=== PATIENT | female | born 1995 | race Caucasian/White ===

== ENCOUNTER 2017-02-13 14:37 | Outpatient (CLI) | payer OTHER ==
[~2017-02-13] VITALS: Ht 167.6 cm; Wt 64.1 kg
[2017-02-13 14:56] VITALS: Ht 167.6 cm; Wt 64.1 kg
[2017-02-13 14:57] VITALS: BP 112/76; PULSE 125; RESP 16
--- NOTE | 2017-02-13 17:12 | RADRPT ---
PROCEDURE: US OB. CLINICAL INDICATION: Vaginal bleeding. TECHNIQUE: Multiple sonographic images of the uterus were obtained. The images were revi ewed on a PACS workstation. COMPARISON: No prior studies are available for comparison. FINDINGS: There is a single live intrauterine gestation. heart rate is 152 beats per minute. Measurements were made in order to determine age. The results are as follows: BPD = 8.29 cm. HC = 30.34 cm. AC = 30.96 cm. FL = 7.02 cm. Estimated weight is 2546 +/- 382 grams. LMP growth percentile is 28 %. Menstrual age by ultrasound dates is 34 weeks 3 days. The estimated date of delivery is 03/24/2017. Position is cephalic and placenta is posterior grade 1. There is no evidence for an abruption or amanda centa previa. IMPRESSION: 1. Single live intrauterine gestation of 34 weeks 3 days menstrual age by ultrasound dates. 2. The estimated date of delivery is 03/24/2017. RPTAT: QQ .Jonathon Neville MD, Date Time Electronically viewed and signed by .Jonathon Neville MD, on 02/13/2017 17:12 .R/
--- NOTE | 2017-02-13 17:13 | RADRPT ---
PROCEDURE: US biophysical profile. CLINICAL INDICATION: Vaginal bleeding. TECHNIQUE: Multiple sonographic images of the uterus were obtained. The images were revi ewed on a PACS workstation. COMPARISON: No prior studies are available for comparison. FINDINGS: There is a single live intrauterine gestation. heart rate is 152 beats per minute. The position is cephalic. The placenta is posterior grade 1 with no abruption or previa. The MEGAN is 16.6 cm. (Normal = 5-20 cm.) Breathing Movement: 2 Gross Body Movement: 2 Tone: 2 Qualitative Amniotic Fluid Volume: 2 TOTAL: 8 IMPRESSION: 1. The biophysical score is 8/8. RPTAT: QQ .Jonathon Neville MD, Date Time Electronically viewed and signed by .Jonathon Neville MD, on 02/13/2017 17:12 .R/
--- NOTE | 2017-02-13 17:48 | PN ---
Triage Information Date/Time Reason for visit: Uterine contractions Weeks of Gestation 35+ /Para 1/0 Diabetes: none Hypertention: none Objective Vital Signs Date Time Temp Pulse Resp B/P Pulse Ox O2 Delivery O2 Flow Rate FiO2 02/13/17 14:57 98.1 125 16 112/76 Heart Rate: 140's Contractions: None Disposition: Discharge Assessment/Plan Nocervical change No vaginal bleeding Some irritability NSt reassuring BPP 11/28 --->discharged with precautions LUPE JUNG M.D. Feb 13, 2017 17:48
--- NOTE | 2017-02-13 17:53 | TRIAGE ---
OB Triage Datetime Report Generated by CPN: 02/13/2017 17:53 Datetime: 02/13/2017 17:26 Labor Evaluation Frequency: 0 Monitor Mode: External Duration (sec)2399: 0 Quality: Mild Pattern: Normal: <= 5 Contractions in 10 Minutes Resting Tone [place]: Relaxed Heart Rate FHR Baseline Rate: 150 Monitor Mode: External US FHR Baseline Changes: No Baseline Change Variability: Moderate 6-25 bpm Accelerations: 15X15 Decelerations: None Category: Category I Datetime: 02/13/2017 17:02 Labor Evaluation Frequency: IRRITABILTY Monitor Mode: External Duration (sec)2399: 30-40 Quality: Mild Pattern: Normal: <= 5 Contractions in 10 Minutes Resting Tone [place]: Relaxed Heart Rate FHR Baseline Rate: 150 Monitor Mode: External US FHR Baseline Changes: No Baseline Change Variability: Moderate 6-25 bpm Accelerations: 15X15 Decelerations: None Category: Category I Membrane Status: Intact Datetime: 02/13/2017 16:55 Maternal Assessment Level of Consciousness: Fully Conscious DTR's/Clonus: DTRs 2+; No Clonus Headache: Denies Blurred Vision: No Respiratory Effort: Unlabored Breath Sounds, Left: Clear and Equal Breath Sounds, Right: Clear and Equal Nausea/Vomiting: Denies RUQ Epigastric Pain: Denies Facial Edema: None Pain Assessment Pain Scale: 0 Pain Presence: None/Denies Pain Type: N/A Pain Goal: 0 Pain Assessment Comments: PT DENIES OF ANY PAIN Vaginal Exam Dilatation (cms): 0.0 Effacement (%): 50 Station: -3 Vaginal Bleeding: None Cervix, Consistency: Firm Cervix, Position: Midposition Presentation 'A': Unable to Assess Lie 'A': Unable to Assess Datetime: 02/13/2017 15:21 EGA: 35.5 Datetime: 02/13/2017 15:19 Labor Evaluation Frequency: 2-3 Monitor Mode: External Duration (sec)2399: 20-30 Quality: Mild Pattern: Normal: <= 5 Contractions in 10 Minutes Resting Tone [place]: Relaxed Contraction Comments: uc with irriatability Heart Rate FHR Baseline Rate: 155 Monitor Mode: External US Variability: Moderate 6-25 bpm Accelerations: 15X15 Decelerations: None Category: Category I Pain Assessment Pain Scale: 6 Pain Presence: Intermittent Pain Type: Contraction Pain Location: Abdomen Pain Goal: 3 Datetime: 02/13/2017 14:54 Assessment Type: Triage Maternal Assessment Level of Consciousness: Fully Conscious DTR's/Clonus: DTRs 2+; No Clonus Headache: Denies Blurred Vision: No Respiratory Effort: Unlabored; Regular Rhythm; Equal Expansion Breath Sounds, Left: Clear and Equal Breath Sounds, Right: Clear and Equal Nausea/Vomiting: Denies RUQ Epigastric Pain: Denies Lower Extremities Edema: None Degree: None Upper Extremities Edema: None Degree: None Facial Edema: None Fall Risk Assessment History of Falling: (0) No Secondary Diagnosis: (0) No Ambulatory Aid: (0) Bedrest/Nurse Assist IV Therapy: (0) No Gait: (0) Normal/Bedrest/Immobile Mental Status: (0) Oriented to Own Ability Fall Score: 0 Fall Risk Score Definition: No Risk: No action required Datetime: 02/13/2017 14:42 Time of Arrival: 02/13/2017 14:31 EGA: 35.5 Arrived By: Ambulance Arrived From: Home Chief Complaint: PT. came to hospital via ambulance c/o lower abdominal pain and spotting 1 time, pain started one hour ago. pain level 6/10, Movement: Present Rupture of Membranes: Denies Recent Sexual Intercouse: Denies Abdominal Trauma: Not Applicable Patient Complaints: Other Time Provider Notified: 02/13/2017 15:01 Provider Notified:
== END 2017-02-13 18:00 | disposition home or self-care (01) ==
LOC: L-D 14:37 → OBT 14:37
PROVIDERS: ATTEND Obstetrics & Gynecology
DX: O62.9 Abnormality of forces of labor, unspecified (principal); Z3A.35 35 weeks gestation of pregnancy
CPT/HCPCS: 76815; 76818; Z7500; G0463

== ENCOUNTER 2017-03-09 07:27 | Inpatient (IN) | payer OTHER ==
[~2017-03-09] VITALS: Ht 167.6 cm; Wt 65.9 kg
[2017-03-09 07:49] VITALS: Ht 167.6 cm; Wt 65.9 kg
[2017-03-09 07:50] VITALS: BP 124/86; PULSE 108; RESP 18
[2017-03-09] MEDS ORDERED: PREN-93 PO (07:52)
--- NOTE | 2017-03-09 08:30 | TRIAGE ---
OB Triage Datetime Report Generated by CPN: 03/09/2017 08:29 Datetime: 03/09/2017 08:13 Labor Evaluation Frequency: 1-2 Monitor Mode: External Duration (sec)2399: 60-70 Quality: Mild Pattern: Normal: <= 5 Contractions in 10 Minutes Resting Tone [place]: Relaxed Heart Rate FHR Baseline Rate: 145 Monitor Mode: External US FHR Baseline Changes: No Baseline Change Variability: Moderate 6-25 bpm Accelerations: 15X15 Decelerations: None Category: Category I Vaginal Exam Dilatation (cms): 0.5 Effacement (%): 50 Station: -3 Exam By: MATA AMOR Membrane Status: Intact Vaginal Bleeding: Normal Show Cervix, Consistency: Firm Cervix, Position: Posterior Presentation 'A': Unable to Assess Lie 'A': Unable to Assess Datetime: 03/09/2017 08:06 Assessment Type: Triage Maternal Assessment Level of Consciousness: Fully Conscious DTR's/Clonus: DTRs 2+; No Clonus Headache: Denies Blurred Vision: No Respiratory Effort: Unlabored Breath Sounds, Left: Clear and Equal Breath Sounds, Right: Clear and Equal Nausea/Vomiting: Denies RUQ Epigastric Pain: Denies Lower Extremities Edema: None Degree: None Upper Extremities Edema: None Degree: None Facial Edema: None Fall Risk Assessment History of Falling: (0) No Secondary Diagnosis: (0) No Ambulatory Aid: (0) Bedrest/Nurse Assist IV Therapy: (0) No Gait: (0) Normal/Bedrest/Immobile Mental Status: (0) Oriented to Own Ability Fall Score: 0 Fall Risk Score Definition: No Risk: No action required Datetime: 03/09/2017 07:52 Stage of : OB Triage Maternal Assessment Level of Consciousness: Fully Conscious DTR's/Clonus: DTRs 2+; No Clonus Headache: Denies Blurred Vision: No Respiratory Effort: Unlabored Breath Sounds, Left: Clear and Equal Breath Sounds, Right: Clear and Equal Nausea/Vomiting: Denies RUQ Epigastric Pain: Denies Facial Edema: None Labor Evaluation Frequency: 2-3 Monitor Mode: External Duration (sec)2399: 60-70 Quality: Mild Pattern: Normal: <= 5 Contractions in 10 Minutes Resting Tone [place]: Relaxed Heart Rate FHR Baseline Rate: 145 Monitor Mode: External US FHR Baseline Changes: No Baseline Change Variability: Minimal - Undetectable to <=5 bpm Accelerations: 10X10 Decelerations: Early Category: Category II Pain Assessment Pain Scale: 1 Pain Presence: Intermittent Pain Type: Contraction Pain Location: Abdomen Pain Goal: 0 Pain Relief Measures: Comfort Measures Membrane Status: Intact Datetime: 03/09/2017 07:28 Time of Arrival: 03/09/2017 07:20 EGA: 39.1 Arrived By: Ambulatory Arrived From: Home Chief Complaint: R/O LABOR Movement: Present Contractions: Irregular Contractions: 2-3 Rupture of Membranes: Denies Vaginal Bleeding: Small Vaginal Discharge: Denies Recent Sexual Intercouse: Denies Abdominal Trauma: Not Applicable Patient Complaints: Contractions Provider Notified: ERICH Datetime: 02/13/2017 15:21 EGA: 35.5 Datetime: 02/13/2017 14:54 Fall Score: 0 Fall Risk Score Definition: No Risk: No action required Datetime: 02/13/2017 14:42 EGA: 35.5 Contractions: Denies/Absent Vaginal Bleeding: None
[2017-03-09] MEDS ORDERED: OXYTOCIN 30 UNITS/LR 500 ML IV SCH ×3 (09:00)
[2017-03-09] MEDS ORDERED: BUTORPHANOL 2 MG INJ IV PRN (09:00)
[2017-03-09] MEDS ORDERED: LIDOCAINE 1% (MPF) 30 ML INJ INJ PRN (09:00)
--- NOTE | 2017-03-09 09:16 | RADRPT ---
PROCEDURE: US OB. CLINICAL INDICATION: Size and dates , contractions TECHNIQUE: Multiple sonographic images of the pelvis and gravid uterus were obtained. The images were reviewed on a PACS workstation. COMPARISON: 02/13/2017 FINDINGS: There is a single viable intrauterine gestation. Cardiac activity is present with 135 beats per min ze. There is a vertex presentation. The placenta is posterior. There is no evidence for an abruption or placenta previa. There is a normal amount of amniotic fluid with an MEGAN = 10.5 cm. Measurements were made in order to determine age. The results are as follows: BPD =8.8 cm HC =31.6 cm AC =32.1 cm FL =7.0 cm Estimated gestational age of approximately 35 weeks and 5 days based on ultrasound measurements. Clinical age: 39 weeks and 1 day. The estimated date of delivery is 04/08/17, based on ultrasound measurements. The EFW = 2783 g, 6.1%, based on LMP age. RPTAT: AA IMPRESSION: Single viable intrauterine gestation of approximately 35 weeks and 5 days based on ultrasound measu rements. .Randy Castellon MD, Date Time Electronically viewed and signed by .Randy Castellon MD, on 03/09/2017 09:15 .S/
[2017-03-09 11:15] LABS: BASOPHILS % 0.2 % (0.0-2.0); EOSINOPHILS # 0.1 10^3/ul (0.0-0.5); EOSINOPHILS % 0.7 % (0.0-7.0); HEMATOCRIT 37.8 % (37.0-47.0); HEMOGLOBIN 12.8 g/dl (12.0-16.0); LYMPHOCYTES # 1.6 10^3/ul (0.8-2.9); LYMPHOCYTES % 16.6 % (18.0-55.0); MEAN CORPUSCULAR HEMOGLOBIN 31.3 pg (29.0-33.0); MEAN CORPUSCULAR HGB CONC 33.9 g/dl (32.0-37.0); MEAN CORPUSCULAR VOLUME 92.4 fl (72.0-104.0); MEAN PLATELET VOLUME 10.6 fl (7.4-10.4); MONOCYTE # 0.6 10^3/ul (0.3-0.9); NEUTROPHIL # 7.2 10^3/ul (1.6-7.5); NEUTROPHILS % 76.1 % (30.0-74.0); PLATELET COUNT 309 10^3/UL (140-415); RED BLOOD COUNT 4.09 10^6/ul (4.20-5.40); RED CELL DISTRIBUTION WIDTH 12.6 % (11.5-14.5); WHITE BLOOD COUNT 9.4 10^3/ul (4.8-10.8)
[2017-03-09] MEDS: LACTATED RINGER'S 1,000 ML IV SCH ×2 (11:28→16:51)
[2017-03-09 11:39] LABS: BARBITURATES Negative (NEGATIVE); BENZODIAZEPINES Negative (NEGATIVE); CANNABINOIDS Negative (NEGATIVE); COCAINE Negative (NEGATIVE); OPIATES Negative (NEGATIVE)
[2017-03-09 11:45] LABS: INR 0.85; PROTIME 11.6 Sec (12.2-14.2); PT RATIO 0.9
[2017-03-09 11:46] LABS: PARTIAL THROMBOPLASTIN TIME 25.6 Sec (25.0-35.0)
--- NOTE | 2017-03-09 14:34 | RADRPT ---
PROCEDURE: US biophysical profile. CLINICAL INDICATION: Contractions. TECHNIQUE: Multiple sonographic images of the uterus were obtained. The images were revi ewed on a PACS workstation. COMPARISON: 02/13/2017 FINDINGS: There is a single live intrauterine gestation. heart rate is 137 beats per minute. The position is cephalic. The placenta is posterior grade II with no abruption or previa. The MEGAN is 10.5 cm. (Normal = 5-20 cm.) Breathing Movement: 2 Gross Body Movement: 2 Tone: 2 Qualitative Amniotic Fluid Volume: 2 TOTAL: 8 IMPRESSION: 1. The biophysical score is 8/8. RPTAT: QQ .Jonathon Neville MD, MD Date Time Electronically viewed and signed by .Jonathon Neville MD, on 03/09/2017 14:34 .R/
[2017-03-10] MEDS ORDERED: IBUPROFEN 600 MG TAB PO PRN
[2017-03-10] MEDS: LACTATED RINGER'S 1,000 ML IV SCH ×4 (00:19→10:44)
[2017-03-10] MEDS ORDERED: FENTAnyl 2MCG/ML-ROPIV 0.2% 100 ML ONE (02:13)
[2017-03-10] MEDS ORDERED: NALOXONE (0.4 MG/ML) INJ IV PRN (03:00)
[2017-03-10] MEDS: FENTAnyl 2MCG/ML-ROPIV 0.2% 100 ML BAG EPI SCH ×2 (03:48→08:24)
[2017-03-10] MEDS ORDERED: AMPICILLIN 2 GM/NS (PMX) 100 ML IVPB ONE (04:30)
[2017-03-10] MEDS ORDERED: AMPICILLIN 1 GM/NS (PMX) 50 ML IVPB SCH (08:30)
[2017-03-10] MEDS ORDERED: ACETAMINOPHEN 325 MG TAB PO PRN (10:30)
--- NOTE | 2017-03-10 11:18 | HP ---
Date/Time of Note Date/Time of Note DATE: 03/10/17 TIME: 11:17 OB - History Hx of Present Free Text/Dictation 39+ : 1 Para: 0 Care: Good Care Ultrasounds: Normal mid trimester US Obstetrical Complications: None Medical Complications: None Past Family/Social History * Past Medical, Surgical, Family and Obstetric Histories reviewed from chart. OB Admission Exam Vital Signs Vital Signs Vital Signs Date Time Temp Pulse Resp B/P Pulse Ox O2 Delivery O2 Flow Rate FiO2 03/09/17 07:50 98.1 108 18 124/86 100 Room Air Physical Exam HEENT: WNL Abdomen: WNL Extremities: Normal Reflexes: Normal Cervical Dilatation: 2cm Effacement: 75% Station: -1 Membranes: Intact Heart Rate: 140's Accelerations: Accelerations Present Decelerations: No Decelerations Varibility: Moderate Contractions on Admission: 6-10 Minutes Apart Last 72 hours Lab Results CBC & BMP 03/09/17 11:05 OB Assessment/Plan Reason for admission: observation Plan: Expectant Management Induction Method: per Pitocin Protocol LUPE JUNG M.D. Mar 10, 2017 11:18
--- NOTE | 2017-03-10 11:19 | LDN ---
Date/Time of Note Date/Time of Note DATE: 03/10/17 TIME: 11:18 Delivery Summary 39+ Weeks of Gestation 39+ Placenta Delivered: Spontaneously Meconium: Light Episiotomy: No Anesthesia type: Epidural Estimated blood loss: 200 Sponge & Needle done & correct: Yes All needle counts correct: Yes Any foreign bodies felt in the: No Problems: Mother & Baby Disposition Disposition Mom & Baby to Maternity; Good: Yes Baby to NICU: No LUPE JUNG M.D. Mar 10, 2017 11:19
[2017-03-10] MEDS ORDERED: LACTATED RINGER'S 1,000 ML IV* SCH (11:42)
[2017-03-10] MEDS ORDERED: OXYTOCIN 30 UNITS/LR 500 ML IV PRN ×2 (12:00)
[2017-03-10] MEDS ORDERED: CARBOPROST 250 MCG INJ IM PRN ×2 (12:00)
[2017-03-10] MEDS ORDERED: ZOLPIDEM 5 MG TAB PO PRN (12:00)
[2017-03-10] MEDS ORDERED: WITCH HAZEL/GLYCERIN PAD PR PRN (12:00)
[2017-03-10] MEDS ORDERED: LANOLIN 7 GM TUBE TOP PRN (12:00)
[2017-03-10] MEDS ORDERED: MISOPROSTOL 200 MCG TAB PR PRN ×2 (12:00)
[2017-03-10] MEDS ORDERED: OXYCODONE/ASPIRIN (4.88/325) TAB PO PRN ×2 (12:00)
[2017-03-10] MEDS ORDERED: METHYLERGONOVINE 0.2 MG INJ IM PRN ×2 (12:00)
[2017-03-10 13:35] VITALS: BP 119/80; PULSE 99; RESP 18
[2017-03-10] MEDS: IBUPROFEN 600 MG TAB PO SCH ×2 (14:50→18:02)
[2017-03-10 16:03] VITALS: BP 127/80; PULSE 108; RESP 20
[2017-03-10] MEDS ORDERED: INFLUENZA VIRUS VACCINE 0.5 ML SYG IM* ONE (18:00)
[2017-03-10 20:00] VITALS: BP 110/68; PULSE 88; RESP 20
[2017-03-10] MEDS: SENNA/DOCUSATE NA (8.6MG/50MG) TAB PO SCH (21:33)
[2017-03-11] MEDS: IBUPROFEN 600 MG TAB PO SCH ×4 (00:55→17:22)
[2017-03-11 04:00] VITALS: BP 95/53; PULSE 85; RESP 16
[2017-03-11 07:56] VITALS: BP 99/58; PULSE 66; RESP 18
[2017-03-11] MEDS: SENNA/DOCUSATE NA (8.6MG/50MG) TAB PO SCH ×2 (08:16→21:00)
[2017-03-11 08:59] LABS: BASOPHILS % 0.3 % (0.0-2.0); EOSINOPHILS # 0.2 10^3/ul (0.0-0.5); EOSINOPHILS % 1.2 % (0.0-7.0); HEMOGLOBIN 9.5 g/dl (12.0-16.0); LYMPHOCYTES # 1.8 10^3/ul (0.8-2.9); LYMPHOCYTES % 11.9 % (18.0-55.0); MEAN CORPUSCULAR HEMOGLOBIN 31.8 pg (29.0-33.0); MEAN CORPUSCULAR HGB CONC 33.9 g/dl (32.0-37.0); MEAN CORPUSCULAR VOLUME 93.6 fl (72.0-104.0); MEAN PLATELET VOLUME 10.4 fl (7.4-10.4); MONOCYTE # 0.9 10^3/ul (0.3-0.9); MONOCYTES % 5.6 % (0.0-13.0); NEUTROPHIL # 12.1 10^3/ul (1.6-7.5); NEUTROPHILS % 80.4 % (30.0-74.0); PLATELET COUNT 206 10^3/UL (140-415); RED BLOOD COUNT 2.99 10^6/ul (4.20-5.40); WHITE BLOOD COUNT 15.1 10^3/ul (4.8-10.8)
[2017-03-11] MEDS ORDERED: INFLUENZA VIRUS VACCINE 0.5 ML (DISPENSING) IM* ONE (09:00)
[2017-03-11 16:00] VITALS: BP 98/58; PULSE 73; RESP 18
--- NOTE | 2017-03-11 18:34 | QN ---
Documentation Comment ppd1 pt doing well vss exam w nl a/p ppd1 continue care JOSAFAT BRYSON MD Mar 11, 2017 18:34
[2017-03-11 20:00] VITALS: BP 112/74; PULSE 80; RESP 20
[2017-03-12] MEDS: IBUPROFEN 600 MG TAB PO SCH ×4 (00:18→18:27)
[2017-03-12 04:00] VITALS: BP 107/61; PULSE 64; RESP 20
[2017-03-12 07:59] VITALS: BP 115/81; PULSE 76; RESP 18
[2017-03-12] MEDS: SENNA/DOCUSATE NA (8.6MG/50MG) TAB PO SCH (08:39)
[2017-03-12] MEDS ORDERED: DIPHTH/TET/ACEL PERTUSS (ADULT) 0.5 ML VIAL IM* ONE (09:00)
--- NOTE | 2017-03-12 16:01 | QN ---
Documentation Comment PPD#2 is stable afebrile tolerates diet No VB +BM +voids VS stable Gen NAD Abd soft NT ND Genitalia No blood at perinium --->discharge Home LUPE JUNG M.D. Mar 12, 2017 16:01
--- NOTE | 2017-03-12 16:02 | DS ---
Date/Time of Note Date/Time of Note DATE: 03/12/17 TIME: 16:01 Discharge Summary Admission/Discharge Info Admit Date/Time Mar 09, 2017 at 08:25 Discharge Date/Time Feb Discharge Diagnosis Patient Condition: Good Procedures vaginal delivery Hospital Course unevetful Home Meds Reported Medications Vit No.124/Iron/FA ( Vitamin Tablet) 1 Each Tablet, 1 EACH PO, TAB 03/09/17 Primary Care Provider Not On Staff Doctor LUPE JUNG M.D. Mar 12, 2017 16:02
[2017-03-12 16:04] VITALS: BP 118/73; PULSE 68; RESP 18
== END 2017-03-12 19:00 | disposition home or self-care (01) | DRG 775 ==
LOC: OBT 07:27 → L-D 07:27 → OBT 11:04 → PP1 03-10 13:57
PROVIDERS: ADMIT Obstetrics & Gynecology; ATTEND Obstetrics & Gynecology
PROC: 4A1HXCZ Monitoring of Products of Conception, Cardiac Rate, External Approach (ICD-10-PCS; 2017-03-09)
PROC: 10E0XZZ Delivery of Products of Conception, External Approach (ICD-10-PCS; principal; 2017-03-10)
PROC: 3E0234Z Introduction of Serum, Toxoid and Vaccine into Muscle, Percutaneous Approach (ICD-10-PCS; 2017-03-11)
PROC: 3E0234Z Introduction of Serum, Toxoid and Vaccine into Muscle, Percutaneous Approach (ICD-10-PCS; 2017-03-12)
DX: O80 Encounter for full-term uncomplicated delivery (principal); Z3A.39 39 weeks gestation of pregnancy; Z37.0 Single live birth; Z23 Encounter for immunization
CPT/HCPCS: 62319; 76815; 76818; 80307; 85025; 85610; 85730; 90686; 90715; 99464; G0463; J0290; J0595; J2590; J3010; J7120

== ENCOUNTER 2018-07-15 19:18 | Emergency (ER) | payer OTHER ==
[~2018-07-15] VITALS: Ht 167.6 cm; Wt 54.0 kg
[2018-07-15 19:34] VITALS: Ht 167.6 cm; Wt 54.0 kg
[2018-07-15] MEDS ORDERED: SOD CHLORIDE 0.9% 1,000 ML IV STA (23:18)
[2018-07-15] MEDS ORDERED: ACETAMINOPHEN 500 MG TAB PO STA (23:18)
--- NOTE | 2018-07-15 23:24 | ERD ---
ER Documentation Chief Complaint Chief Complaint L SIDE BREAST PAIN X'S 1 DAY HPI This is a 23-year-old female with a nonsignificant past medical history presents ED with multiple complaints. Patient is complaining of cough for the past 3 days as well as left anterior chest pain near her axilla that is been present for the past day as well as a near syncopal episodes that occurred earlier today.. Patient states that over the past 3 days she has been coughing. Patient states that at school today she was falling asleep at her desk and when she woke up she felt her heart rate increasing which made her extremely nervous and short of breath. Patient states that she got up from her seat and was feeling extremely anxious and fainted. Patient did not strike her head. Denies fever, chills, sputum production, nausea, vomiting, diarrhea, cuts patient, abdominal pain, wheezing and all other symptoms. Patient denies PE risk factors including recent surgery/immobilization, smoking, prior hx of DVT, coagulopathy, hx of cancer, exogenous estrogen use, one sided lower extremity swelling, and lower extremity pain. Patient denies cardiac risk factors including: hypertension, diabetes mellitus, hypercholesterolemia, physical inactivity, smoking, hx of CAD, and prior stress/cath. ROS All systems reviewed and are negative except as per history of present illness. Medications Home Meds No Active Prescriptions or Reported Meds Allergies Allergies: Coded Allergies: No Known Allergy (Unverified , 03/09/17) FmHx Family History: No diabetes Physical Exam Vitals Vital Signs Date Temp Pulse Resp B/P (MAP) Pulse Ox O2 O2 Flow FiO2 Time Delivery Rate 07/15/18 97.6 115 18 138/88 97 19:34 (105) Physical Exam Physical Exam Vitals signs: Reviewed by me. General: Well developed, well nourished, in no acute distress. Patient is awake and alert. Head: Normocephalic, atraumatic. Eyes: Normal conjunctiva, Pupils PERRLA, EOM intact grossly ENT: Pharynx is clear, Moist mucous membranes, external ears, nose and mouth normal Neck: Supple, no masses, lymphadenopathy or JVD breast exam: No purulent drainage expressed from left breast, breast is nontender to palpation, there is mild tenderness palpation along chest near the left axilla, no increased redness, swelling, Respiratory: Clear to auscultation bilaterally with no wheezing, rhonchi, rales, no distress Cardiovascular: RRR, no murmurs, rubs, or gallops Abdominal: Soft, non-tender, non-distended, no peritoneal signs : Deferred MSK: No edema, no unilateral swelling, 5/5 strength Back: No midline tenderness. No flank tenderness Neurologic: Alert and oriented, moving all extremities, normal speech, no focal weakness, no cerebellar signs. Normal mentation Skin: warm and dry, No rash Psych: Normal mood Result Diagram: 07/15/18 2341 07/15/18 2341 Results 24 hrs Laboratory Tests Test 07/15/18 23:41 07/15/18 23:52 07/15/18 23:54 White Blood Count 7.1 10^3/ul Red Blood Count 4.19 10^6/ul Hemoglobin 12.7 g/dl Hematocrit 38.6 % Mean Corpuscular Volume 92.1 fl Mean Corpuscular Hemoglobin 30.3 pg Mean Corpuscular 32.9 g/dl Hemoglobin Concent Red Cell Distribution Width 12.8 % Platelet Count 359 10^3/UL Mean Platelet Volume 9.5 fl Immature Granulocytes % 0.300 % Neutrophils % 60.3 % Lymphocytes % 30.7 % Monocytes % 7.8 % Eosinophils % 0.3 % Basophils % 0.6 % Nucleated Red Blood Cells % 0.0 /100WBC Immature Granulocytes # 0.020 10^3/ul Neutrophils # 4.3 10^3/ul Lymphocytes # 2.2 10^3/ul Monocytes # 0.6 10^3/ul Eosinophils # 0.0 10^3/ul Basophils # 0.0 10^3/ul Nucleated Red Blood Cells # 0.0 10^3/ul Urine Color YELLOW Urine Clarity CLEAR Urine pH 8.0 Urine Specific [place] 1.011 Urine Ketones 1+ mg/dL Urine Nitrite NEGATIVE mg/dL Urine Bilirubin NEGATIVE mg/dL Urine Urobilinogen NEGATIVE mg/dL Urine Leukocyte Esterase NEGATIVE Javon/ul Urine Microscopic RBC 1 /HPF Urine Microscopic WBC 2 /HPF Urine Squamous Epithelial Cells FEW /HPF Urine Mucus FEW /HPF Urine Hemoglobin 1+ mg/dL Urine Glucose NEGATIVE mg/dL Urine Total Protein NEGATIVE mg/dl Sodium Level 144 mmol/L Potassium Level 3.1 mmol/L Chloride Level 103 mmol/L Carbon Dioxide Level 25 mmol/L Anion Gap 16 Blood Urea Nitrogen 6 mg/dl Creatinine 0.55 mg/dl Est Glomerular Filtrat > 60 mL/min Rate mL/min Glucose Level 105 mg/dl Calcium Level 9.8 mg/dl Troponin I < 0.012 ng/ml Bedside Urine pH (LAB) 7.5 Bedside Urine Protein (LAB) Negative Bedside Urine Glucose (UA) Negative Bedside Urine Ketones (LAB) 1+ Bedside Urine Blood Trace-lysed Bedside Urine Nitrite (LAB) Negative Bedside Urine Leukocyte Esterase Negative (L POC Beta HCG, Qualitative NEGATIVE Current Medications Medications Dose Sig/Maik Start Time Status Last (Trade) Ordered Route PRN Stop Time Admin Dose Reason Admin Sodium 1,000 ml @ Q1H STAT 07/15/18 DC 07/16/18 Chloride 1,000 mls/hr IV 23:18 00:00 07/16/18 00:17 Lorazepam 0.5 mg ONCE ONCE 07/15/18 DC 07/16/18 (Ativan) IV 23:30 00:02 07/15/18 23:31 1,000 mg ONCE STAT 07/15/18 DC 07/15/18 Acetaminophen PO 23:18 23:59 (Tylenol 07/15/18 23:19 Tab) Potassium 40 meq ONCE STAT 07/16/18 DC 07/16/18 Chloride PO 00:28 00:35 (Klor-Con 20) 07/16/18 00:29 Procedures/MDM EKG, MONITORS, & DIAGNOSTIC IMAGING: [place] [id number] Radiology Main Line: [phone] DIAGNOSTIC IMAGING REPORT Patient: DALI ELDER : 1995 Age: 23 Sex: F MR #: [id number] DOS: 07/15/18 2318 Ordering MD: TAMICA JOY PA-C Location: [facility] Room/Bed: PROCEDURE: XR Chest. CLINICAL INDICATION: Syncope. TECHNIQUE: AP view of the chest was obtained. COMPARISON: None available FINDINGS: The cardiomediastinal silhouette is within normal limits. The lungs are clear. No signs of pleural fluid or pneumothorax are seen. The osseous structures and soft tissues are unremarkable. IMPRESSION: 1. No evidence for acute cardiopulmonary disease. RPTAT: HGAS .Levi Slater MD, Date Time Electronically viewed and signed by .Levi Slater MD, MD on 07/16/2018 00:23 .S/ CC: TAMICA JOY PA-C [id number] EKG read by warner: Rate/Rhythm: Regular rate and rhythm at a rate of 98 Intervals: Normal Impression: No evidence of ischemia or arrhythmia No ST elevation, no peak T waves, no widened QRS, no WA interval prolongation, no QT interval prolongation LAB INTERPRETATION: CBC shows no evidence of hemorrhage or infection Chemistry remarkable for a mildly decreased potassium at 3.1, mildly elevated a nion gap 16 Liver function test shows no evidence of acute biliary or hepatic dysfunction Cardiac biomarkers show no evidence of acute myocardial injury or coronary ischemia Urinalysis remarkable for 1+ ketones, no leukocyte esterase and no nitrite ER COURSE: The patient was given iv normal saline and ativan The medication was well tolerated and the patient reports improvement in symptoms. The patient was stable throughout ED course. I kept the patient and/or family informed of laboratory and diagnostic imaging results throughout the emergency room course. The patient was promptly evaluated and a treatment plan was devised based on H&P and other data. This plan was discussed with the patient who agreed and had no further questions or concerns prior to discharge. MEDICAL DECISION MAKING: This is a 23-year-old female presents ED with complaints of left anterior lateral chest pain near her axilla that is been present for the past day as well as cough for the past 3 days and a vasovagal episode that occurred earlier today. The patient presents with chest pain and I considered pulmonary embolism, acute coronary syndrome, STEMI, and STEMI, pericarditis, aortic dissection, pneumothorax, tension pneumothorax, pneumonia, pleural effusion, among other diagnoses. Per the perc criteria pulmonary embolism can be ruled out. Patient is low risk for PE by well's criteria with the score of 0. Patient also does not have any risk factors for pulmonary embolism. Chest x-ray is unremarkable. EKG is also unremarkable. Evaluation for acute coronary syndrome was performed. The HEART score (www.mdcalc.com <http://www.mdcalc.com>) was utilized for risk stratification and found to be 0. Based on this evaluation the patients risk of major adverse cardiac events is <1%. Patient is also extremely anxious in the emergency department and I believe that her symptoms could also be due to anxiety, costochondritis. History and physical examination other data not consistent with emergent processes including lung not limited to acute coronary syndrome, pulmonary embolism, pneumonia, pleural effusion, pneumothorax, tension pneumothorax, aortic dissection, esophageal rupture, among others. Patient vitals are stable and patient can be managed with close outpatient follow. patient advised to follow up with primary care in the next 48 hours. return to ed with any worsening symptoms DISPOSITION PLAN: We discussed follow up with the patient's primary care doctor within 24 to 48 hours. Patient counseled regarding my diagnostic impression and care plan. Prior to discharge all questions answered. Pt agrees with treatment plan and understands strict return precautions. Precautionary instructions provided including instructions to return to the ER if not improving or for any worsening or changing symptoms or concerns. SPECIALIST FOLLOW UP RECOMMENDED: None Patient has been advised to follow up with primary care in 1-2 days. Disclaimer: Inadvertent spelling and grammatical errors are likely due to EHR/dictation software use and do not reflect on the overall quality of patient care. Also, please note that the electronic time recorded on this note does not necessarily reflect the actual time of the patient encounter. Departure Diagnosis: Primary Impression: Chest pain Chest pain type: unspecified Qualified Codes: R07.9 - Chest pain, unspecified Additional Impressions: Vasovagal near syncope Cough Hypokalemia Condition: Stable Patient Instructions: Anxiety Reaction, Anxiety and Traumatic Brain Injury, Chest Pain, Uncertain Cause, Chest Wall Pain, Costochondritis, Hypokalemia, Near Syncope, Vasovagal Referrals: COMM[facility] Additional Instructions: Patient advised to return to the ED immediately for new or worsening symptoms. Patient advised to follow up with primary care provider in the next 24-48 hours. Patient verbalized understanding and agrees with treatment plan and course of action. If patient has no primary care they may follow up with one of the community clinics listed on the following page or one of the options listed below [facility] + [facility] [address] [place] [id number] or [facility] [address] [place] [address] or [facility] [address] [place] [address] TAMICA JOY PA-C Jul 15, 2018 23:24
[2018-07-15] MEDS ORDERED: LORAZEPAM 2 MG INJ IV ONE (23:30)
[2018-07-16] MEDS ORDERED: POTASSIUM CHLORIDE (SR) 20 MEQ TAB PO STA (00:28)
[2018-07-16] MEDS ORDERED: IBUP-1542 PO (01:00)
[2018-07-16 01:22] VITALS: BP 121/79; PULSE 85; RESP 18
== END 2018-07-16 01:24 | disposition home or self-care (01) ==
LOC: FTE 19:18
DX: R07.9 Chest pain, unspecified (principal); R55 Syncope and collapse; E87.6 Hypokalemia
CPT/HCPCS: 36415; 71045; 80048; 81001; 81003; 81025; 84484; 85025; 93005; 96361; 96374; J2060; J7030; Z7502; Z7610

== ENCOUNTER 2018-08-03 00:07 | Emergency (ER) | payer OTHER ==
[~2018-08-03] VITALS: Ht 165.1 cm; Wt 54.7 kg
[~2018-08-03 00:07] MED LIST: IBUP-1542 PO
[2018-08-03 00:28] VITALS: BP 142/96; PULSE 97; RESP 19; Ht 165.1 cm; Wt 54.7 kg
== END 2018-08-03 05:15 | disposition left against medical advice (07) ==
LOC: FTE 00:07
DX: Z53.21 Procedure and treatment not carried out due to patient leaving prior to being seen by health care provider (principal)

== ENCOUNTER 2018-10-17 19:26 | Emergency (ER) | payer OTHER ==
[~2018-10-17] VITALS: Ht 167.6 cm; Wt 51.6 kg
[2018-10-17 19:49] VITALS: Ht 167.6 cm; Wt 51.6 kg
--- NOTE | 2018-10-17 22:07 | ERD ---
ER Documentation Chief Complaint Chief Complaint L upper non-radiating CP X 1 hr, Hx CHF HPI chf ROS All systems reviewed and are negative except as per history of present illness. Medications Home Meds Active Scripts Ibuprofen* (Motrin*) 600 Mg Tab, 600 MG PO Q6, #30 TAB Prov:BENITA TAMICA MALONE 07/16/18 Allergies Allergies: Coded Allergies: No Known Allergy (Unverified , 03/09/17) PMhx/Soc Hx Alcohol Use: No Hx Substance Use: No Hx Tobacco Use: No Physical Exam Vitals Vital Signs Date Temp Pulse Resp B/P (MAP) Pulse Ox O2 O2 Flow FiO2 Time Delivery Rate 10/17/18 98.7 79 18 121/67 99 19:49 (85) Physical Exam Const: No acute distress Head: Atraumatic Eyes: Normal Conjunctiva ENT: Normal External Ears, Nose and Mouth. Neck: Full range of motion. No meningismus. Resp: Clear to auscultation bilaterally Cardio: Regular rate and rhythm, no murmurs Abd: Soft, non tender, non distended. Normal bowel sounds Skin: No petechiae or rashes Back: No midline or flank tenderness Ext: No cyanosis, or edema Neur: Awake and alert Psych: Normal Mood and Affect Result Diagram: 10/17/18221810/17/182218 Results 24 hrs Laboratory Tests Test 10/17/18 22:19 10/17/18 22:31 White Blood Count 6.8 10^3/ul Red Blood Count 3.93 10^6/ul Hemoglobin 12.0 g/dl Hematocrit 36.6 % Mean Corpuscular Volume 93.1 fl Mean Corpuscular Hemoglobin 30.5 pg Mean Corpuscular Hemoglobin Concent 32.8 g/dl Red Cell Distribution Width 12.8 % Platelet Count 339 10^3/UL Mean Platelet Volume 9.5 fl Immature Granulocytes % 0.100 % Neutrophils % 63.1 % Lymphocytes % 28.3 % Monocytes % 6.0 % Eosinophils % 1.9 % Basophils % 0.6 % Nucleated Red Blood Cells % 0.0 /100WBC Immature Granulocytes # 0.010 10^3/ul Neutrophils # 4.3 10^3/ul Lymphocytes # 1.9 10^3/ul Monocytes # 0.4 10^3/ul Eosinophils # 0.1 10^3/ul Basophils # 0.0 10^3/ul Nucleated Red Blood Cells # 0.0 10^3/ul Prothrombin Time 12.8 Sec Prothrombin Time Ratio 1.0 INR International Normalized Ratio 0.95 Activated Partial Thromboplast Time 30.3 Sec Urine Color STRAW Urine Clarity CLEAR Urine pH 6.0 Urine Specific [place] 1.010 Urine Ketones NEGATIVE mg/dL Urine Nitrite NEGATIVE mg/dL Urine Bilirubin NEGATIVE mg/dL Urine Urobilinogen NEGATIVE mg/dL Urine Leukocyte Esterase NEGATIVE Javon/ul Urine Hemoglobin NEGATIVE mg/dL Urine Glucose NEGATIVE mg/dL Urine Total Protein NEGATIVE mg/dl Sodium Level 143 mmol/L Potassium Level 3.9 mmol/L Chloride Level 106 mmol/L Carbon Dioxide Level 27 mmol/L Anion Gap 10 Blood Urea Nitrogen 10 mg/dl Creatinine 0.59 mg/dl Est Glomerular Filtrat Rate mL/min > 60 mL/min Glucose Level 103 mg/dl Calcium Level 9.6 mg/dl Total Bilirubin 0.4 mg/dl Direct Bilirubin 0.00 mg/dl Indirect Bilirubin 0.4 mg/dl Aspartate Amino Transf (AST/SGOT) 21 IU/L Alanine Aminotransferase (ALT/SGPT) 22 IU/L Alkaline Phosphatase 68 IU/L Troponin I < 0.012 ng/ml B-Type Natriuretic Peptide 37 PG/ML Total Protein 7.9 g/dl Albumin 4.6 g/dl Globulin 3.30 g/dl Albumin/Globulin Ratio 1.39 Thyroid Stimulating Hormone (TSH) 2.090 MIU/L Free Thyroxine 1.00 ng/dl Free Triiodothyronine (T3) pg/mL 3.95 pg/ml POC Beta HCG, Qualitative NEGATIVE Current Medications Medications Dose Sig/Maik Start Time Status Last (Trade) Ordered Route PRN Stop Time Admin Dose Reason Admin Ketorolac 15 mg ONCE STAT 10/18/18 DC 10/18/18 Tromethamine IV 01:01 01:08 (Toradol) 10/18/18 01:02 JOHN FERREIRA Oct 17, 2018 22:06 BILLIE VALLEJO MD Oct 18, 2018 01:12
[2018-10-18] MEDS ORDERED: KETOROLAC 15 MG INJ IV STA (01:01)
--- NOTE | 2018-10-18 01:28 | ERD ---
ER Documentation Chief Complaint Chief Complaint L upper non-radiating CP X 1 hr, Hx CHF HPI This is a 23-year-old female with a past medical history of hyperthyroidism on methimazole, anxiety, CHF who is presenting with waxing and waning throat and upper chest tightness. The patient reports several days of having a dry throat which has been uncomfortable for her. She denies any dysphasia. She denies any swelling. She denies any drooling. She has been able to eat without difficulty. She denies a hoarse voice. She denies any stridor or wheezing or trouble breathing. She reportedly indicated chest pain to the triage nurse. However, she does not endorse any pain to me. She only expresses tightness with her upper chest and throat. She does not endorse feeling sick recently. She denies fever or chills. She denies any white patches to her tonsils. She denies any lymphadenopathy or swollen glands. She has not had a cough. She does endorse congestion with occasional green phlegm. The patient has had no headache or vision changes. The patient does not endorse neck or back pain. The patient denies lightheadedness or dizziness. The patient has had no chest pain or trouble breathing. The patient denies nausea or vomiting. The patient denies abdominal pain. The patient denies changes to bowel movements or urination. The patient has had no focal deficits. The patient has had no weakness or numbness or tingling to the face or extremities. ROS All systems reviewed and are negative except as per history of present illness. Medications Home Meds Active Scripts Ibuprofen* (Motrin*) 600 Mg Tab, 600 MG PO Q6, #30 TAB Prov:TAMICA JOY PA-C 07/16/18 Allergies Allergies: Coded Allergies: No Known Allergy (Unverified , 03/09/17) PMhx/Soc History of Surgery: No Hx Neurological Disorder: No Hx Respiratory Disorders: No Hx Cardiac Disorders: Yes (CHF) Hx Psychiatric Problems: No Hx Miscellaneous Medical Probl: Yes (Hyperthyroidism) Hx Alcohol Use: No Hx Substance Use: No Hx Tobacco Use: No Smoking Status: Never smoker FmHx Family History: No diabetes Physical Exam Vitals Vital Signs Date Temp Pulse Resp B/P (MAP) Pulse Ox O2 O2 Flow FiO2 Time Delivery Rate 10/17/18 98.7 79 18 121/67 99 19:49 (85) Physical Exam Const: No acute distress Head: Atraumatic Eyes: Normal Conjunctiva ENT: Normal External Ears, Nose and Mouth. Neck: Full range of motion. No meningismus. Resp: Clear to auscultation bilaterally Cardio: Regular rhythm, mild tachycardia, no murmurs Abd: Soft, non tender, non distended. Normal bowel sounds Skin: No petechiae or rashes Back: No midline or flank tenderness Ext: No cyanosis, or edema Neur: Awake and alert Psych: Anxious Result Diagram: 10/17/189 10/17/182218 Results 24 hrs Laboratory Tests Test 10/17/18 22:19 10/17/18 22:31 White Blood Count 6.8 10^3/ul Red Blood Count 3.93 10^6/ul Hemoglobin 12.0 g/dl Hematocrit 36.6 % Mean Corpuscular Volume 93.1 fl Mean Corpuscular Hemoglobin 30.5 pg Mean Corpuscular Hemoglobin Concent 32.8 g/dl Red Cell Distribution Width 12.8 % Platelet Count 339 10^3/UL Mean Platelet Volume 9.5 fl Immature Granulocytes % 0.100 % Neutrophils % 63.1 % Lymphocytes % 28.3 % Monocytes % 6.0 % Eosinophils % 1.9 % Basophils % 0.6 % Nucleated Red Blood Cells % 0.0 /100WBC Immature Granulocytes # 0.010 10^3/ul Neutrophils # 4.3 10^3/ul Lymphocytes # 1.9 10^3/ul Monocytes # 0.4 10^3/ul Eosinophils # 0.1 10^3/ul Basophils # 0.0 10^3/ul Nucleated Red Blood Cells # 0.0 10^3/ul Prothrombin Time 12.8 Sec Prothrombin Time Ratio 1.0 INR International Normalized Ratio 0.95 Activated Partial Thromboplast Time 30.3 Sec Urine Color STRAW Urine Clarity CLEAR Urine pH 6.0 Urine Specific [place] 1.010 Urine Ketones NEGATIVE mg/dL Urine Nitrite NEGATIVE mg/dL Urine Bilirubin NEGATIVE mg/dL Urine Urobilinogen NEGATIVE mg/dL Urine Leukocyte Esterase NEGATIVE Javon/ul Urine Hemoglobin NEGATIVE mg/dL Urine Glucose NEGATIVE mg/dL Urine Total Protein NEGATIVE mg/dl Sodium Level 143 mmol/L Potassium Level 3.9 mmol/L Chloride Level 106 mmol/L Carbon Dioxide Level 27 mmol/L Anion Gap 10 Blood Urea Nitrogen 10 mg/dl Creatinine 0.59 mg/dl Est Glomerular Filtrat Rate mL/min > 60 mL/min Glucose Level 103 mg/dl Calcium Level 9.6 mg/dl Total Bilirubin 0.4 mg/dl Direct Bilirubin 0.00 mg/dl Indirect Bilirubin 0.4 mg/dl Aspartate Amino Transf (AST/SGOT) 21 IU/L Alanine Aminotransferase (ALT/SGPT) 22 IU/L Alkaline Phosphatase 68 IU/L Troponin I < 0.012 ng/ml B-Type Natriuretic Peptide 37 PG/ML Total Protein 7.9 g/dl Albumin 4.6 g/dl Globulin 3.30 g/dl Albumin/Globulin Ratio 1.39 Thyroid Stimulating Hormone (TSH) 2.090 MIU/L Free Thyroxine 1.00 ng/dl Free Triiodothyronine (T3) pg/mL 3.95 pg/ml POC Beta HCG, Qualitative NEGATIVE Current Medications Medications Dose Sig/Maik Start Time Status Last (Trade) Ordered Route PRN Stop Time Admin Dose Reason Admin Ketorolac 15 mg ONCE STAT 10/18/18 DC 10/18/18 Tromethamine IV 01:01 01:08 (Toradol) 10/18/18 01:02 Procedures/MDM MDM The patient's presentation warrants further investigation. Previous medical records, if available, were reviewed. LABS The patient's laboratory testing was obtained and reviewed. No emergent treatment was required unless described below. CBC: No E/o systemic infection or severe anemia or thrombocytopenia Chemistry: No E/o severe acidosis or alkalosis or renal failure or liver disease or diabetic ketoacidosis PT/INR: No E/o significant coagulopathy Troponin: No E/o acute ischemia BNP: No E/o heart failure TFTs: Unremarkable Urinalysis: No infection or hematuria EKG EKG read by me: Rate/Rhythm: Regular rate and rhythm at a rate of 79 bpm Intervals: Normal [place]: Normal Impression: No evidence of acute ischemia or arrhythmia IMAGING Imaging and Radiology interpretation reviewed. CXR FINDINGS: The cardiac silhouette is within normal limits. The aortic arch is unremarkable. There is no focal consolidation, vascular congestion or pleural effusion. There is no pneumothorax. The osseous structures are grossly intact. IMPRESSION: No acute cardiopulmonary process identified. Electronically viewed and signed by .Harpreet Roberts MD, MD on 10/17/2018 23:13 TREATMENT/DISPOSITION The patient presents for chest and throat tightness, which is waxing and waning in nature. The patient is well-appearing and I have low suspicion for pharyngitis. There is no evidence of retropharyngeal abscess or peritonsillar abscess. I do not suspect Manfred's angina. There is no evidence of angioedema. I do not suspect anaphylaxis. The patient does appear anxious in the room. Anxiety is certainly a possibility. The patient does have a known history of hyperthyroidism and is actively taking methimazole. Mild hyperthyroidism could also be the etiology of her symptoms today. That said, the patient's thyroid s tudies are normal. I do not suspect thyroid storm. I have low suspicion for a thyroid emergency. The patient has a reassuring physical exam. The patient is not clinically orthostatic. The patient is not dizzy. I have decreased suspicion for vertigo. The patient has no signs of emergent or symptomatic anemia. The patient does not have any emergent electrolyte or metabolic emergencies. The patient is not toxic appearing. I have decreased suspicion for an infectious etiology of symptoms. I do not see any evidence of urinary tract infection. The patient is not . The patient's EKG and troponin are reassuring. I have low suspicion for acute coronary syndrome. I do not see evidence of any emergent cardiac arrhythmia, which includes but is not limited to heart block, Brugada syndrome or WPW. The patient has no heart murmurs or rales. There is no evidence of cardiomegaly on exam or chest xray. I have low suspicion for hypertrophic cardiomyopathy. I do not see evidence of CHF. The patient does not endorse any chest or pleuritic pain. The history is negative for bleeding or clotting disorders. The patient has not been involved in any recent prolonged trips or surgeries or hosp italizations. The patient has no calf tenderness or swelling. I have decreased suspicion for PE as the etiology of symptoms. The patient has no focal deficits. The neurologic exam is reassuring. I have decreased suspicion for cerebral ischemia. There was no trauma or injury. There is no personal or family history of cerebral aneurysm. I have decreased suspicion for SAH or other ICH. I have low suspicion for temporal arteritis, cavernous venous thrombosis, subdural hematoma, epidural hematoma, meningitis. DISCHARGE Upon reevaluation of the patient, symptoms have improved. No emergent diagnoses were identified. At this time, I feel that the patient stable for discharge. The patient was instructed to follow-up with a primary care physician in 1-3 days. The patient will be given strict precautions with which to return to the emergency department. Prescriptions: Ibuprofen The patient's blood pressure was elevated at greater than 120/80 while in the emergency department. The patient was otherwise stable with no evidence of hypertensive urgency or emergency. The patient does not require admission for blood pressure control. I have discussed with the patient the risks of hypertens ion. I have instructed the patient to return to the ER for any new or worsening symptoms including chest pain, shortness of breath, headache, blurred vision, confusion, nausea, vomiting or LOC. I have advised the patient to follow up with the primary care physician for outpatient monitoring and treatment for hypertension in 1-3 days. Disclaimer: Inadvertent spelling and grammatical errors are likely due to EHR/dictation software use and do not reflect on the overall quality of patient care. Note that the electronic time recorded on this note does not necessarily reflect the actual time of the patient encounter. Departure Diagnosis: Primary Impression: Throat tightness Additional Impressions: Chest tightness Anxiousness Tachycardia Condition: Stable Patient Instructions: Anxiety Reaction, Treating Dysphagia Additional Instructions: Thank you for for coming to [facility] for your care today. Please ask your nurse or provider if you have questions about your care today and do not leave until all your questions have been answered. Please use any medications given as directed and follow-up with your doctor (or the doctor you were referred to) in the next 1-3 days. If you do not have a primary care doctor you may follow up at the [facility] clinic (listed below). You may also use motrin and tylenol as needed for fever and/or pain unless instructed otherwise by your provider or nurse. Indications for more urgent follow-up have been discussed, but you may return to the Emergency Department at ANY time for any worrisome or worsening symptoms. If you have abdominal pain, please know that no test or exam you received is perfect and you should follow up within 8 hours for continued pain. If you had any imaging studies today, such as an X-Ray or CT Scan, these studies will be reviewed later by a radiologist. You will be called if there are important findings that were not identified today, so make sure the contact information you provided at registration is correct. If you received any narcotic pain control medicine today, such as Vicodin, Morphine or Dilaudid, your coordination and judgment may be affected for a number of hours. Please do not drive or operate heavy machinery, and you may want someone to assist you at home. If you were given a prescription for narcotic medication, be aware that it is very addictive- use sparingly and only if necessary. PLEASE SEEK FURTHER EVALUATION AND MANAGEMENT AT YOUR DOCTORS OFFICE WITHIN THE NEXT 1-3 DAYS. IT IS YOUR RESPONSIBILITY TO MAKE AN APPOINTMENT FOR FOLOW-UP CARE. IF YOU HAVE A PRIMARY DOCTOR, PLEASE CALL THEIR OFFICE TO SCHEDULE AN APPOINTMENT FOR FOLLOW UP. IF YOU DO NOT HAVE A PRIMARY DOCTOR YOU CAN CALL OUR PHYSICIAN REFERRAL HOTLINE AT IF YOU CAN NOT AFFORD TO SEE A PHYSICIAN YOU CAN CHOSE FROM THE FOLLOWING [facility] CLINICS: [facility] [address] [facility]. [facility] [address] [facility] [facility] [address] [facility] [address] [facility] [address]. [facility]. [address] BILLIE LITTLE MD Oct 18, 2018 01:25
[2018-10-18] MEDS ORDERED: CALC500T91 PO (01:29)
[2018-10-18] MEDS ORDERED: LISI2.5T59 PO (01:29)
[2018-10-18] MEDS ORDERED: METH-493 PO (01:29)
[2018-10-18] MEDS ORDERED: PROP10TA6 PO (01:29)
[2018-10-18] MEDS ORDERED: [UNRECOGNIZED DRUG - CODE] PO (01:29)
[2018-10-18] MEDS ORDERED: IBUP-1542 PO (01:30)
[2018-10-18 01:50] VITALS: BP 111/69; PULSE 85; RESP 20
== END 2018-10-18 02:12 | disposition home or self-care (01) ==
LOC: FTE 19:26 → E/R 10-18 02:12
DX: R07.89 Other chest pain (principal); I50.9 Heart failure, unspecified; F41.9 Anxiety disorder, unspecified
CPT/HCPCS: 36415; 71046; 80053; 81003; 81025; 83880; 84439; 84443; 84481; 84484; 85025; 85610; 85730; 93005; 96374; J1885; Z7502; Z7610

== ENCOUNTER → 2018-11-29 | Outpatient (CLI) | payer OTHER ==
[~2018-11-29] MED LIST changes: +CALC500T91 PO; +LISI2.5T59 PO; +METH-493 PO; +PROP10TA6 PO; +[UNRECOGNIZED DRUG - CODE] PO
--- NOTE | 2018-11-29 16:53 | RADRPT ---
Echocardiogram Report Patient Name: DALI ELDERPatient ID: [id number] : 1995 (23y 9m)Study Date: 11/29/2018 8:32:59 AM Gender: FAccession #: [id number] Tech: Joseluis Rubin [facility] Location: EKG Ref.Physician: EDGARDO CROW Height(Cm): BSA: Weight(Kg): Quality: AdequateOrder Physician: EDGARDO CROW Account #: Procedures: Echocardiographic Report: Transthoracic echocardiogram with complete 2D, M-Mode, and doppler examination. Indications: Evaluate Left Ventricular function w/ BUBBLE STUDY. Measurements: 2D/M Mode Doppler Measurement Value Normal Range Measurement Value Normal Range LVIDd 2D 4.7 [ 3.8 - 5.2 ] cm AV Peak Oscar 1.3 [ 100.0 - 170.0 ] cm/sec LVIDs 2D 3.7 [ 2.2 - 3.5 ] cm AV Peak PG 6.0 [ 2.0 - 9.0 ] mmHg IVSd 2D 0.7 [ 0.6 - 0.9 ] cm LVOT Peak Oscar 0.7 [ 70.0 - 110.0 ] cm/sec IVS/LVPW 2D 0.9 ratio LVOT Peak PG 2.0 [ 2.0 - 6.0 ] mmHg AoR Diam 2D 2.1 [ 2.3 - 3.1 ] cm MV E Peak Oscar 0.7 [ 60.0 - 130.0 ] cm/sec LA/Ao 2D 1 ratio MV A Peak Oscar 0.6 [ 100.0 - 120.0 ] cm/sec LA Dimen 2D 2.9 [ 2.7 - 3.8 ] cm MV E/A 1.2 [ 0.8 - 1.5 ] ratio MV Decel Time 162 [ 104 - 258 ] msec MV E/A 1.2 [ 0.8 - 1.5 ] ratio RA Pressure 3.0 mmHg Findings: Left Ventricle: Normal left ventricular cavity size. Normal left ventricular wall thickness. Mild global left ventricular systolic dysfunction. Ejection fraction is visually estimated at 45-50 %. Right Ventricle: Normal right ventricular size. Normal right ventricular systolic function. Left Atrium: The left atrium is normal in size. Right Atrium: The right atrium is normal in size. Atrial Septum: Aneurysmal atrial septum. Bubble study was performed with and with out valsalva indicating no evidence of intra atrial shunt. Mitral Valve: Mild mitral leaflet calcification. Mild mitral annular calcification. Trace mitral regurgitation. Aortic Valve: No significant aortic stenosis or insufficiency. Aortic cusps appear mildly calcified. Tricuspid Valve: Normal appearance of the tricuspid valve. Unable to obtain RVSP due to minimal presence of tricuspid regurgitation. Pericardium: Normal pericardium with no significant pericardial effusion. Aorta: Normal aortic root. IVC: Normal size and normal respiratory collapse consistent with normal right atrial pressure. Conclusions: Normal left ventricular cavity size. Normal left ventricular wall thickness. Mild global left ventricular systolic dysfunction. Ejection fraction is visually estimated at 45-50 %. Aneurysmal atrial septum. Bubble study was performed with and with out valsalva indicating no evidence of intra atrial shunt. Mild mitral leaflet calcification. Mild mitral annular calcification. Trace mitral regurgitation. Normal appearance of the tricuspid valve. Unable to obtain RVSP due to minimal presence of tricuspid regurgitation. Electronically Signed By: Jose Carlos Barclay 2018-11-29 16:52:25 PDT
== END | disposition home or self-care (01) ==
LOC: EKG 08:22
PROVIDERS: ATTEND Internal Medicine Clinical Cardiac Electrophysiology
DX: R00.0 Tachycardia, unspecified (principal)
CPT/HCPCS: 93306